=== PATIENT | female | born 1985 | race Two or more races ===

== ENCOUNTER → 2024-09-15 | Emergency (ER) | payer OTHER ==
[~2024-09-15] VITALS: Ht 165.1 cm; Wt 99.8 kg
[~2024-09-15] MED LIST: ACETAMINOPHEN 500 MG GEL..CAP PO STA; ALBUTEROL SULFATE 3 ML/2.5 MG AMPUL.NEB IH SCH; BUSPIRONE HCL10 MG; GUAIFENESIN 200 MG/10 ML BLIST.PACK PO STA; METHYLPREDNISOLONE SOD SUCC 125 MG VIAL IV STA; RESTORIL15 MG; ZOLOFT50 MG
[2024-09-15 06:28] LABS: COVID-19 AG NEGATIVE (NEGATIVE)
[2024-09-15 06:29] LABS: INFLUENZA A AG NEGATIVE (NEGATIVE); INFLUENZA B AG NEGATIVE (NEGATIVE)
[2024-09-15 06:34] LABS: BASO % 0.3 % (0.1-1.2); EOS # 0.48 (0.04-0.54); EOS % 5.2 % (0.7-7.0); HEMATOCRIT 35.2 % (34.1-44.9); HEMOGLOBIN 11.2 g/dL (11.2-15.7); LYMPH # 1.72 (1.18-3.74); LYMPH % 18.5 % (19.3-53.1); MEAN CORPUSCULAR HEMOGLOBIN 25.3 pg (25.6-32.2); MONO # 0.66 (0.24-0.82); MONO % 7.1 % (4.7-12.5); NEUT # 6.35 (1.56-6.13); NEUT % 68.5 % (34.0-71.1); PLATELET COUNT 341 K/uL (163-369); RED BLOOD COUNT 4.42 M/uL (3.93-5.22); RED CELL DISTRIBUTION WIDTH 13.8 % (11.6-14.4)
== END | disposition home or self-care (01) ==
LOC: ER 03:03
PROVIDERS: General Practice
DX: R05.9 Cough, unspecified (principal); Z20.822 Contact with and (suspected) exposure to COVID-19; Z88.6 Allergy status to analgesic agent